=== PATIENT | male | born 1960 | race Hispanic/Latino ===

== ENCOUNTER 2017-04-01 17:00 | Emergency (ER) | payer OTHER ==
[2017-04-01 17:01] VITALS: BMI 34.8
[2017-04-01 17:22] VITALS: TEMP 98.4
--- NOTE | 2017-04-01 19:11 | ED PDOC ---
Arrival/HPI - General Chief Complaint: Abnormal Skin Integrity Time Seen by Provider: 04/01/17 17:11 Historian: Patient - History of Present Illness Narrative History of Present Illness (Text): 04/01/17 19:07 56 yo M w/ pmh of HTN and high cholesterol, is s/p angiogram of his coronary arteries yesterday at [facility] in [facility] by Dr. Em. He states that today he noticed bruising and small amount of blood to the R inguinal area, prompting concern and evaluation. He reports mild discomfort to the right inguinal area with certain movements and with walking. Otherwise the patient has no complaints , chest pain, shortness of breath, headache, dizziness, abdominal pain, nausea or vomiting, urinary symptoms, back pain. PMD [place] Past Medical History - Provider Review Nursing Documentation Reviewed: Yes - Infectious Disease Hx of Infectious Diseases: None - Tetanus Immunization Tetanus Immunization: Unknown - Cardiac Hx Cardiac Disorders: Yes (cardiac stent 1998, [place]) - Endocrine/Metabolic Hx Endocrine Disorders: Yes (hypothyroid) - Musculoskeletal/Rheumatological Hx Falls: No - Gastrointestinal Hx Gastroesophageal Reflux: Yes - Psychiatric Hx Depression: No Hx Emotional Abuse: No Hx Physical Abuse: No Hx Substance Use: No - Surgical History Hx Coronary Stent: Yes Hx Orthopedic Surgery: Yes (cervical spine surgery) - Anesthesia Hx Anesthesia: No - Suicidal Assessment Feels Threatened In Home Enviroment: No Family/Social History - Physician Review Nursing Documentation Reviewed: Yes Family/Social History: No Known Family HX Smoking Status: Never Smoked Hx Alcohol Use: No Hx Substance Use: No Hx Substance Use Treatment: No Allergies/Home Meds Allergies/Adverse Reactions: Allergies No Known Allergies Allergy (Verified 04/01/17 17:22) Home Medications: Home Meds Medication Instructions Recorded Confirmed Aspirin [Aspirin Chewable] 81 mg PO DAILY 04/01/17 04/01/17 Atorvastatin [Lipitor] 20 mg PO DAILY 04/01/17 04/01/17 Clopidogrel [Plavix] 75 mg PO DAILY 04/01/17 04/01/17 Diltiazem HCl [Diltiazem 24Hr ER] 180 mg PO DAILY 04/01/17 04/01/17 Famotidine [Pepcid] 20 mg PO DAILY 04/01/17 04/01/17 Psyllium [Hydrocil Instant] 1 pkt PO DAILY 04/01/17 04/01/17 Review of Systems - Review of Systems Constitutional: Normal. absent: Fatigue, Weight Change, Fevers Respiratory: Normal. absent: SOB, Cough, Sputum Cardiovascular: Normal. absent: Chest Pain, Palpitations, Syncope Gastrointestinal: Normal. absent: Abdominal Pain, Diarrhea, Vomiting Genitourinary Male: Normal. absent: Dysuria, Frequency, Hematuria Musculoskeletal: Normal. absent: Arthralgias, Back Pain, Neck Pain Skin: Normal, Other (bruising and bleeding to the R inguinal area). absent: Rash, Pruritis, Skin Lesions Physical Exam - Physical Exam Narrative Physical Exam (Text): 04/01/17 19:12 GENERAL APPEARANCE: Patient is awake, alert, oriented x 3, in no acute distress. SKIN: Warm, dry; (-) cyanosis. EYES: (-) conjunctival pallor, (-) scleral icterus. ENMT: Mucous membranes moist. NECK: (-) tenderness, (-) stiffness, (-) lymphadenopathy. CHEST AND RESPIRATORY: (-) rales, (-) rhonchi, (-) wheezes; breath sounds equal bilaterally. HEART AND CARDIOVASCULAR: (-) irregularity; (-) murmur, (-) gallop. ABDOMEN AND GI: (-) distention. Bowel sounds active; (-) tenderness, (-) guarding, (-) rebound, (-) palpable masses, (-) CVA tenderness. EXTREMITIES: (+) small area of ecchymosis to the R inguinal area, not tender to palpation, with small area of dried blood, (-) limitation in ROM, (-) deformity , (-) edema, (+) distal pulses. NEURO AND PSYCH: Mental status as above; (-) focal findings. Vital Signs Temp Pulse Resp BP Pulse Ox 04/01/17 19:42 79 18 145/89 99 04/01/17 17:17 98.4 F 72 16 164/70 H 96 Medical Decision Making ED Course and Treatment: 04/01/17 19:13 56 yo M w/ pmh of HTN and high cholesterol, is s/p angiogram of his coronary arteries yesterday at [facility] in [facility] by Dr. Em, states that today he noticed bruising and small amount of blood to the R inguinal area, prompting concern and evaluation. Plan: -- US duplex of the R LE - to r/o pseudoaneurysm 04/01/17 19:33 US duplex of the R LE : (-) for pseudoaneurysm, as per US tech. On reevaluation, the patient is laying comfortably in no acute distress, has no additional complaints at this time. Ultrasound results discussed with the patient in great detail. Patient states that he has a scheduled appointment with his injury/safety hazard assessment tomorrow for follow-up. - RAD Interpretation Radiology Orders: 04/01/17 18:11 DUPLEX LOWER EXTRM ARTR RIGHT [US] Stat - PA / GAS BRAZER / Resident Statement MD/DO has reviewed & agrees with the documentation as recorded. Disposition/Present on Arrival - Present on Arrival Any Indicators Present on Arrival: No History of DVT/PE: No History of Uncontrolled Diabetes: No Urinary Catheter: No History of Decub. Ulcer: No History Surgical Site Infection Following: None - Disposition Have Diagnosis and Disposition been Completed?: Yes Diagnosis: Traumatic ecchymosis of groin Disposition: HOME/ ROUTINE Disposition Time: 19:15 Patient Plan: Discharge Condition: STABLE Discharge Instructions (ExitCare): Angiogram (GEN) Print Language: AFGHAN Additional Instructions: Thank you for letting us take care of you today. You were treated for R inguinal bruising s/p angiogram. The emergency medical care you received today was directed at your acute symptoms. It may take several days for your symptoms to resolve. Return to the Emergency Department if your symptoms worsen, do not improve, or if you have any other problems. Please see your injury/safety hazard assessment tomorrow as scheduled for re-evaluation and follow up. Bring any paperwork you were given at discharge with you along with any medications you are taking to your follow up visit. Our treatment cannot replace ongoing medical care by a primary care provider (PCP) outside of the emergency department. Thank you for allowing the [facility] team to be part of your care today. If you had a US: A Radiologist will review the ED reading if any change in treatment is needed we will contact you. Arterial Doppler US R LE : no pseudoaneurysm Referrals: Sudarshan Sorto MD [Primary Care Provider] - Follow up with primary Forms: [employer] (Sammarinese)
[2017-04-01 19:43] VITALS: BP 145/89; PULSE 79; RESP 18; O2SAT 99
--- NOTE | 2017-04-02 12:19 | US ---
PROCEDURE: Duplex arterial ultrasound of the right groin. HISTORY: Recent catheterization. Pain and pulsatile mass in the right groin. Evaluate for pseudoaneurysm or fistula. PHYSICIAN(S): Juan Diego Devine MD. FINDINGS: The right common femoral artery is patent with a normal triphasic waveform. No sonographic evidence of a pseudoaneurysm or AV fistula is seen. The right superficial femoral artery and profunda femoral artery are patent proximally. The visualized venous segments the right groin are patent and compressible. IMPRESSION: 1. No sonographic evidence for pseudoaneurysm or AV fistula in the right groin.
== END 2017-04-01 19:43 | disposition home or self-care (01) ==
LOC: ED 17:00
DX: S30.1XXA Contusion of abdominal wall, initial encounter (principal); Y84.8 Other medical procedures as the cause of abnormal reaction of the patient, or of later complication, without mention of misadventure at the time of the procedure; Y92.89 Other specified places as the place of occurrence of the external cause; I10 Essential (primary) hypertension